=== PATIENT | female | born 1995 | race African-American/Black ===

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

== ENCOUNTER → 2017-02-28 | Outpatient (REF) | payer OTHER | LOC: M SFHCLERA 20:54 | DX: N30.01 Acute cystitis with hematuria (principal) ==

== ENCOUNTER → 2017-05-03 | Outpatient (REF) | payer OTHER | LOC: M SFHCLERA 13:25 | DX: B34.9 Viral infection, unspecified (principal) | CPT/HCPCS: 87086 ==

== ENCOUNTER 2017-09-08 10:57 | Inpatient (IN) | payer OTHER ==
[2017-09-08 11:36] LABS: HEMATOCRIT 38.6 % (36.0-47.0); HEMOGLOBIN 12.3 g/dl (12.0-15.5); MEAN CORPUSCULAR HEMOGLOBIN 27.5 pg (27.0-33.0); MEAN CORPUSCULAR HGB CONC 31.9 g/dl (32.0-36.5); MEAN CORPUSCULAR VOLUME 86.4 fl (80.0-96.0); PLATELET COUNT, AUTOMATED 350 10^3/uL (150-450); RED BLOOD COUNT 4.47 10^6/uL (4.00-5.40); WHITE BLOOD COUNT 6.9 10^3/uL (4.0-10.0)
[2017-09-08 11:53] LABS: CONTROL LINE HCG INT CTR LINE PRESENT; HCG, SERUM QUALITATIVE NEGATIVE (NEGATIVE)
[2017-09-08 12:26] LABS: AMPHETAMINES LEVEL URINE NEGATIVE (NEGATIVE); BARBITURATES URINE POSITIVE (NEGATIVE); BENZODIAZEPINES URINE NEGATIVE (NEGATIVE); CANNABINOIDS URINE NEGATIVE (NEGATIVE); COCAINE METABOLITE URINE NEGATIVE (NEGATIVE); METHADONE URINE NEGATIVE (NEGATIVE); OPIATES URINE NEGATIVE (NEGATIVE); PHENCYCLIDINE URINE NEGATIVE (NEGATIVE)
[2017-09-08 12:35] LABS: ALBUMIN 3.9 GM/DL (3.2-5.2); ALKALINE PHOSPHATASE 79 U/L (45-117); ALT/SGPT 22 U/L (12-78); ANION GAP 9 MEQ/L (8-16); AST/SGOT 17 U/L (7-37); BILIRUBIN,DIRECT 0.1 MG/DL (0.0-0.2); BILIRUBIN,TOTAL 0.3 MG/DL (0.2-1.0); BLOOD UREA NITROGEN 10 MG/DL (7-18); CARBON DIOXIDE LEVEL 24 MEQ/L (21-32); CHLORIDE LEVEL 108 MEQ/L (98-107); CREATININE FOR GFR 0.83 MG/DL (0.55-1.30); ETHYL ALCOHOL (ETHANOL) < 0.003 % (0.000-0.010); GLUCOSE, FASTING 83 MG/DL (70-100); LIPASE 105 U/L (73-393); POTASSIUM SERUM 4.1 MEQ/L (3.5-5.1); SALICYLATE LEVEL < 1.7 MG/DL (5.0-30.0); SODIUM LEVEL 141 MEQ/L (136-145); TOTAL PROTEIN 7.8 GM/DL (6.4-8.2)
[2017-09-08 12:36] LABS: ACETAMINOPHEN LEVEL < 2.0 UG/ML (10.0-30.0)
[2017-09-08] MEDS ORDERED: SUMAtriptan SUCCINATE 25 MG TAB PO (15:30)
[2017-09-08] MEDS ORDERED: MAALOX 30 ML SUSP *UDC PO (15:45)
[2017-09-08] MEDS ORDERED: MOM 30ML SUSPENSION UDC PO (15:45)
[2017-09-08] MEDS: BACTRIM 160MG/800MG DS TAB PO (21:42)
[2017-09-08] MEDS: AMITRIPTYLINE 50 MG TAB PO (21:42)
[2017-09-09] MEDS: OMEPRAZOLE 20 MG CAP PO (09:25)
[2017-09-09] MEDS: BACTRIM 160MG/800MG DS TAB PO ×2 (09:26→21:31)
[2017-09-09] MEDS: SERTRALINE 100 MG TAB PO (09:26)
[2017-09-09] MEDS: AMITRIPTYLINE 50 MG TAB PO (21:31)
[2017-09-10] MEDS: OMEPRAZOLE 20 MG CAP PO (09:33)
[2017-09-10] MEDS: BACTRIM 160MG/800MG DS TAB PO (09:33)
[2017-09-10] MEDS: SERTRALINE HCL 50 MG TAB PO (09:33)
== END 2017-09-10 14:17 | disposition home or self-care (01) | DRG 882 ==
LOC: M ED 10:57 → M PSY 14:20
DX: F43.23 Adjustment disorder with mixed anxiety and depressed mood (principal); R45.851 Suicidal ideations; N39.0 Urinary tract infection, site not specified; Z79.899 Other long term (current) drug therapy; Z62.810 Personal history of physical and sexual abuse in childhood

== ENCOUNTER → 2017-09-13 | Outpatient (REF) | payer OTHER | LOC: M SFHCLERA 09:46 | DX: J02.9 Acute pharyngitis, unspecified (principal) ==

== ENCOUNTER 2017-10-21 11:26 | Day surgery (SDC) | payer OTHER ==
[2017-10-21] MEDS ORDERED: NS 1,000 ML IV (11:30)
[2017-10-21] MEDS ORDERED: fentaNYL 100 MCG/2 ML INJECTION (J3010) As Ordered (13:15)
[2017-10-21] MEDS ORDERED: PROPOFOL 200 MG/20 ML VIAL As Ordered (13:23)
== END 2017-10-21 14:06 | disposition home or self-care (01) ==
LOC: M OPP 11:26
DX: K29.50 Unspecified chronic gastritis without bleeding (principal); R10.9 Unspecified abdominal pain; R11.2 Nausea with vomiting, unspecified; F41.9 Anxiety disorder, unspecified; F32.9 Major depressive disorder, single episode, unspecified; Z79.899 Other long term (current) drug therapy
CPT/HCPCS: 43239

== ENCOUNTER 2017-12-10 13:35 | Emergency (ER) | payer OTHER ==
[2017-12-10] MEDS: METOCLOPRAMIDE INJ 10MG/2ML VIAL (J2765) IV (16:44)
[2017-12-10] MEDS: NS 1,000 ML IV (16:45)
[2017-12-10 17:26] LABS: BASO % 0.4 % (0.0-1.0); EOS % 0.3 % (0.0-3.0); HEMATOCRIT 34.4 % (36.0-47.0); HEMOGLOBIN 10.8 g/dl (12.0-15.5); IMMATURE GRANULOCYTE % 0.4 % (0-3.0); LYMPH # 1.8 10^3/uL (1.5-6.5); LYMPH % 17.6 % (24.0-44.0); MEAN CORPUSCULAR HEMOGLOBIN 26.1 pg (27.0-33.0); MEAN CORPUSCULAR HGB CONC 31.4 g/dl (32.0-36.5); MEAN CORPUSCULAR VOLUME 83.1 fl (80.0-96.0); MONO # 0.7 10^3/uL (0.0-0.8); MONO % 6.7 % (0.0-5.0); NEUTROPHILS # 7.7 10^3/uL (1.8-7.7); NEUTROPHILS % 74.6 % (36.0-66.0); PLATELET COUNT, AUTOMATED 338 10^3/uL (150-450); RED BLOOD COUNT 4.14 10^6/uL (4.00-5.40); RED CELL DISTRIBUTION WIDTH 14.1 % (11.5-14.5); WHITE BLOOD COUNT 10.3 10^3/uL (4.0-10.0)
[2017-12-10 17:46] LABS: ALBUMIN 3.7 GM/DL (3.2-5.2); ALBUMIN/GLOBULIN RATIO 0.97 (1.00-1.93); ALKALINE PHOSPHATASE 69 U/L (45-117); ALT/SGPT 28 U/L (12-78); ANION GAP 6 MEQ/L (8-16); AST/SGOT 18 U/L (7-37); BILIRUBIN,DIRECT < 0.1 MG/DL (0.0-0.2); BILIRUBIN,TOTAL 0.3 MG/DL (0.2-1.0); BLOOD UREA NITROGEN 16 MG/DL (7-18); CALCIUM LEVEL 8.8 MG/DL (8.5-10.1); CARBON DIOXIDE LEVEL 27 MEQ/L (21-32); CHLORIDE LEVEL 106 MEQ/L (98-107); CREATININE FOR GFR 0.78 MG/DL (0.55-1.30); GLUCOSE, FASTING 85 MG/DL (70-100); POTASSIUM SERUM 3.8 MEQ/L (3.5-5.1); SODIUM LEVEL 139 MEQ/L (136-145); TOTAL PROTEIN 7.5 GM/DL (6.4-8.2)
[2017-12-10 18:16] LABS: CONTROL LINE HCG INT CTR LINE PRESENT; HCG, SERUM QUALITATIVE NEGATIVE (NEGATIVE)
== END 2017-12-10 19:25 | disposition home or self-care (01) ==
LOC: M ED 13:35
DX: R51 Headache (principal); F41.9 Anxiety disorder, unspecified; F32.9 Major depressive disorder, single episode, unspecified
CPT/HCPCS: J2765

== ENCOUNTER → 2018-02-15 | Outpatient (REF) | payer OTHER ==
[~2018-02-15] MED LIST: AMIT50TA PO; BACT800T5 PO; DIFL150T PO; HYDR-3363; PYRI1TAB5 PO; SERT50TA PO; VENL150C43; VENL37.598; ZOLO100T PO
== END ==
LOC: M SFHCLERA 16:51
PROVIDERS: ATTEND Nurse Practitioner Family
DX: J02.9 Acute pharyngitis, unspecified (principal)

== ENCOUNTER 2018-03-13 11:36 | Emergency (ER) | payer OTHER ==
[~2018-03-13] VITALS: Ht 165.1 cm; Wt 81.8 kg
--- NOTE | 2018-03-13 12:35 | REP ---
RIGHT WRIST, FOUR VIEWS: HISTORY: Trauma. There is no acute fracture or dislocation. The joint spaces are normal in appearance. IMPRESSION: There is no acute fracture or dislocation. Electronically Signed by Carlos Fisher MD 03/13/2018 12:41 P
--- NOTE | 2018-03-13 12:36 | REP ---
RIGHT HAND, FOUR VIEWS: HISTORY: Trauma. There is no acute fracture or dislocation. The joint spaces are normal in appearance. IMPRESSION: There is no acute fracture or dislocation. Electronically Signed by Carlos Fisher MD 03/13/2018 12:42 P
[2018-03-13] MEDS ORDERED: hydrOXYzine 25 MG TAB PO STA (13:19)
[2018-03-13 13:33] VITALS: BP 122/64
== END 2018-03-13 13:35 | disposition home or self-care (01) ==
LOC: M ED 11:36
DX: Z04.1 Encounter for examination and observation following transport accident (principal); S60.221A Contusion of right hand, initial encounter; V43.52XA Car driver injured in collision with other type car in traffic accident, initial encounter; F41.9 Anxiety disorder, unspecified; F33.9 Major depressive disorder, recurrent, unspecified; Z79.899 Other long term (current) drug therapy

== ENCOUNTER → 2018-05-11 | Outpatient (REF) | payer OTHER ==
[~2018-05-11] MED LIST changes: +SERT-141 PO; -SERT50TA PO
[2018-05-11 20:40] LABS: BASO % 0.5 % (0.0-1.0); EOS # 0.1 10^3/uL (0.0-0.50); EOS % 1.5 % (0.0-3.0); HEMATOCRIT 35.6 % (36.0-47.0); LYMPH # 2.2 10^3/uL (1.5-6.5); LYMPH % 29.6 % (24.0-44.0); MEAN CORPUSCULAR HEMOGLOBIN 25.9 pg (27.0-33.0); MEAN CORPUSCULAR HGB CONC 30.9 g/dl (32.0-36.5); MONO # 0.7 10^3/uL (0.0-0.8); MONO % 8.9 % (0.0-5.0); NEUTROPHILS # 4.5 10^3/uL (1.8-7.7); NEUTROPHILS % 59.1 % (36.0-66.0); PLATELET COUNT, AUTOMATED 354 10^3/uL (150-450); RED BLOOD COUNT 4.24 10^6/uL (4.00-5.40); WHITE BLOOD COUNT 7.5 10^3/uL (4.0-10.0)
[2018-05-11 20:44] LABS: BLOOD UREA NITROGEN 14 MG/DL (7-18); CALCIUM LEVEL 9.3 MG/DL (8.5-10.1); CARBON DIOXIDE LEVEL 25 MEQ/L (21-32); CHLORIDE LEVEL 107 MEQ/L (98-107); CREATININE FOR GFR 0.72 MG/DL (0.55-1.30); GLUCOSE, FASTING 84 MG/DL (70-100); POTASSIUM SERUM 4.2 MEQ/L (3.5-5.1); SODIUM LEVEL 138 MEQ/L (136-145)
== END ==
LOC: M SFHCLERA 14:33
PROVIDERS: ATTEND Nurse Practitioner Family
DX: Z76.89 Persons encountering health services in other specified circumstances (principal)
CPT/HCPCS: 80048; 85025; G0463

== ENCOUNTER → 2018-06-15 | Outpatient (CLI) | payer OTHER ==
--- NOTE | 2018-06-16 01:40 | REP ---
Clinical: Radiculopathy . Technique: AP, lateral, flexion/extension, bilateral oblique, and open-mouth views. Findings: Minimal reversal of normal lordosis noted on neutral lateral view. Alignment is otherwise maintained. There is no evidence for acute fracture / compression injury or subluxation. No significant degenerative changes are appreciated. Oblique views demonstrate patent neural foramen. Open mouth view demonstrates normal C1-C2 articulation and odontoid process. Impression: Minimal reversal of normal lordosis. Otherwise normal examination. Electronically Signed by Marc Rasmussen MD 06/16/2018 01:31 A
== END ==
LOC: M LRY 15:13
PROVIDERS: ATTEND Nurse Practitioner Family
DX: M54.2 Cervicalgia (principal)
CPT/HCPCS: 72052; G0463

== ENCOUNTER → 2018-09-02 | Outpatient (REF) | payer OTHER ==
[2018-09-02 22:16] LABS: CHLAMYDIA DNA AMPLIFICATION NEGATIVE (NEGATIVE); GC DNA AMPLIFICATION NEGATIVE (NEGATIVE)
== END ==
LOC: M SFHCLERA 12:41
PROVIDERS: ATTEND Nurse Practitioner Family
DX: R11.0 Nausea (principal)
CPT/HCPCS: 81002; 81025; 87086; 87661; G0463

== ENCOUNTER → 2018-09-15 | Outpatient (CLI) | payer OTHER ==
[2018-09-15 20:36] LABS: IMMUNOGLOBULIN E 68.2 IU/ML (<100)
[2018-09-19 08:06] LABS: F024-IgE Shrimp <0.10 kU/L (Class 0); F338-IgE Oyster <0.10 kU/L (Class 0); F338-IgE Scallop <0.10 kU/L (Class 0)
[2018-09-20 10:38] LABS: ALPHA 1 ANTITRYPSIN 148 mg/dL (90-200); D001-IgE D pteronyssinus <0.10 kU/L (Class 0); E001-IgE Cat Epith/Dander < 0.10 kU/L (Class 0); E005-IgE Dog Dander 0.23 kU/L (Class 0/I); F002-IgE Milk < 0.10 kU/L (Class 0); F004-IgE Wheat 0.47 kU/L (Class I); F009-IGE RICE <0.10 kU/L (Class 0); F013-IgE Peanut < 0.10 kU/L (Class 0); F014-IgE Soybean < 0.10 kU/L (Class 0); F026-IgE Pork < 0.10 kU/L (Class 0); F027-IgE Beef < 0.10 kU/L (Class 0); F083-IGE CHICKEN <0.10 kU/L (Class 0); F245-IgE Egg, Whole < 0.10 kU/L (Class 0); FX02-IgE Food Mix (Sea Foods) Negative (.); M001-IgE Penicillium chrysogen < 0.10 kU/L (Class 0); M002 IgE Cladosporium herbaru < 0.10 kU/L (Class 0); M003 IgE Aspergillus fumigatu < 0.10 kU/L (Class 0); M006-IgE Alternaria alternata < 0.10 kU/L (Class 0); T001-IgE Maple/Box Elder < 0.10 kU/L (Class 0); T003-IgE Common Silver Birch < 0.10 kU/L (Class 0); T006-IgE Cedar, Mountain < 0.10 kU/L (Class 0); T007-IgE Oak, White < 0.10 kU/L (Class 0); T008-IgE Elm, American < 0.10 kU/L (Class 0); T015-IgE Ash, White < 0.10 kU/L (Class 0); T041-IgE Hickory, White < 0.10 kU/L (Class 0); T070-IgE White Mulberry < 0.10 kU/L (Class 0); W001-IgE Ragweed, Short 0.31 kU/L (Class 0/I); W009-IgE Plantain, English 0.12 kU/L (Class 0/I); W014-IgE Pigweed, Rough < 0.10 kU/L (Class 0); W018-IgE Sheep Sorrel < 0.10 kU/L (Class 0)
== END ==
LOC: M LRY 15:50
PROVIDERS: ATTEND Allergy & Immunology
DX: J30.1 Allergic rhinitis due to pollen (principal); J30.81 Allergic rhinitis due to animal (cat) (dog) hair and dander; J30.89 Other allergic rhinitis

== ENCOUNTER → 2019-01-11 | Outpatient (REF) | payer OTHER ==
[2019-01-12 09:46] LABS: CHLAMYDIA DNA AMPLIFICATION POSITIVE (NEGATIVE); GC DNA AMPLIFICATION NEGATIVE (NEGATIVE)
== END ==
LOC: M SFHCLERA 16:08
PROVIDERS: ATTEND Nurse Practitioner Family
DX: R39.9 Unspecified symptoms and signs involving the genitourinary system (principal)
CPT/HCPCS: 81002; 87088; 87186; 87661; G0463